=== PATIENT | male | born 1960 | race Caucasian/White ===

== ENCOUNTER 2018-08-12 06:27 | Emergency (ER) | payer BC, OTHER ==
[~2018-08-12] VITALS: Ht 175.3 cm; Wt 95.3 kg
[~2018-08-12 06:27] MED LIST: ASPIRIN325 MG PO; ATORVASTATIN CA10 MG PO; METOPROLOL TART25 MG PO; NITROGLYCERIN1 EAC1 TD
[2018-08-12] MEDS ORDERED: ONDANSETRON HCL INJ 2 MG/ML VIAL IV STA (07:09)
[2018-08-12] MEDS ORDERED: MORPHINE SULFATE 2 MG/ML SYR IV STA ×2 (07:09→07:29)
[2018-08-12 07:15] LABS: BASOPHILS # (AUTO) 0.1 (0.0-0.1); BASOPHILS % 0.4 % (0.0-1.0); EOSINOPHILS # (AUTO) 0.2 (0.0-0.4); EOSINOPHILS % 1.3 % (0.0-6.0); HEMATOCRIT 44.8 % (38.2-49.6); HEMOGLOBIN 15.7 g/dL (14.0-18.0); LYMPHOCYTES # (AUTO) 2.7 (1.0-3.2); LYMPHOCYTES % 18.2 % (18.0-39.1); MEAN CORPUSCULAR HEMOGLOBIN 32.3 pg (28-32); MEAN CORPUSCULAR VOLUME 92.2 fL (81-99); MONOCYTES # (AUTO) 0.8 (0.2-0.8); MONOCYTES % 5.3 % (4.4-11.3); NEUTROPHILS # (AUTO) 11.1 (2.1-6.9); NEUTROPHILS % 74.3 % (38.7-80.0); PLATELET COUNT 285 x10e3/uL (140-360); RED BLOOD COUNT 4.86 x10e6/uL (4.3-5.7); RED CELL DISTRIBUTION WIDTH 12.7 % (11.7-14.4)
[2018-08-12] MEDS ORDERED: SODIUM CHLORIDE 0.9% 1000ML 1,000 ML IV SCH (07:15)
[2018-08-12 07:18] LABS: CLARITY,URINE CLEAR (CLEAR); COLOR,URINE YELLOW (YELLOW); LEUKOCYTE ESTERASE ,URINE 1+ (NEGATIVE); NITRITE,URINE NEGATIVE (NEGATIVE); PROTEIN,URINE DIPSTICK NEGATIVE (NEGATIVE)
[2018-08-12 07:19] LABS: AMPHETAMINES SCREEN,URINE NEGATIVE (NEGATIVE); BENZODIAZEPINES SCREEN,URINE NEGATIVE (NEGATIVE); BILIRUBIN,URINE NEGATIVE (NEGATIVE); INR 0.91; KETONES,URINE NEGATIVE (NEGATIVE); PHENCYCLIDINE SCREEN,URINE NEGATIVE (NEGATIVE); PROTHROMBIN TIME 13.1 seconds (11.9-14.5); URINE UROBILINOGEN 0.2 mg/dL (0.2 - 1)
[2018-08-12 07:20] LABS: PARTIAL THROMBOPLASTIN TIME 27.3 seconds (23.8-35.5)
[2018-08-12] MEDS ORDERED: ONDANSETRON HCL INJ 2 MG/ML VIAL ONE (07:20)
[2018-08-12] MEDS ORDERED: MORPHINE SULFATE 2 MG/ML SYR ONE (07:20)
[2018-08-12 07:27] LABS: ALANINE AMINOTRANSFERASE 31 IU/L (0-55); ALBUMIN 3.9 g/dL (3.5-5.0); ALBUMIN/GLOBULIN RATIO 1.2 (0.8-2.0); ALKALINE PHOSPHATASE 111 IU/L (40-150); AMYLASE 53 U/L (25-125); BLOOD UREA NITROGEN 14 mg/dL (7-26); BUN/CREATININE RATIO 16 (6-25); CALCIUM 9.2 mg/dL (8.4-10.2); CARBON DIOXIDE 25 mmol/L (22-29); CHLORIDE 104 mmol/L (98-107); CREATINE KINASE 161 IU/L (30-200); CREATININE, SERUM 0.87 mg/dL (0.72-1.25); EST GLOMERULAR FILTRATION RATE > 60 ML/MIN (60-); GLUCOSE 146 mg/dL (74-118); LIPASE 42 U/L (8-78); SODIUM 142 mmol/L (136-145)
[2018-08-12 07:29] LABS: BACTERIA,URINE MODERATE /HPF; EPITHELIAL CELLS,URINE RARE /LPF
[2018-08-12] MEDS ORDERED: FAMOTIDINE 20 MG/2 ML VIAL IV STA (07:29)
[2018-08-12 07:30] LABS: MUCUS,URINE FEW (RARE)
[2018-08-12] MEDS ORDERED: POTASSIUM CHLO10 ME1 PO (08:03)
[2018-08-12] MEDS ORDERED: ZETIA10 MG PO (08:04)
[2018-08-12] MEDS ORDERED: LASIX20 MG PO ×2 (08:05→08:06)
--- NOTE | 2018-08-12 08:16 | Diagnostic Imaging Report ---
EXAMINATION: PA and lateral views of the chest. COMPARISON: None CLINICAL HISTORY: Abdominal pain DISCUSSION: Lines/tubes: Sternotomy wires Lungs: The lungs are well inflated and clear. No pneumonia or pulmonary edema. Pleura: No pleural effusion or pneumothorax. Heart and mediastinum: The cardiomediastinal silhouette is normal. Bones and soft tissues: No acute bony abnormalities. IMPRESSION: No acute cardiopulmonary abnormalities. Signed by: Dr. Anderson Hernandez M.D. on 08/12/2018 8:11 AM
[2018-08-12] MEDS ORDERED: SODIUM CHLORIDE 0.9% 50ML 50 ML ONE (08:40)
[2018-08-12] MEDS ORDERED: IOPAMIDOL 370 MG/ML 200 ML INFUS..BTL INJ ONE ×2 (08:42→08:47)
--- NOTE | 2018-08-12 08:55 | Diagnostic Imaging Report ---
EXAMINATION: CT of the abdomen and pelvis with contrast. TECHNIQUE: Helical CT images of the abdomen and pelvis were performed from the lung bases to the lesser trochanters after the intravenous administration of 100 cc of Isovue 300 and the oral administration of none. Coronal and sagittal reformatted images were obtained. Dose modulation, iterative reconstruction, and/or weight based adjustment of the mA/kV was utilized to reduce the radiation dose to as low as reasonably achievable. COMPARISON: None. CLINICAL HISTORY:Abdominal pain family right lower quadrant DISCUSSION: ABDOMEN/PELVIS: LOWER THORAX:Unremarkable. HEPATOBILIARY: No focal hepatic lesions. No intra-or extrahepatic biliary ductal dilation. Small calcified gallstones. SPLEEN: No splenomegaly. PANCREAS: No focal masses or ductal dilatation. ADRENALS: No adrenal nodules. KIDNEYS/URETERS: No hydronephrosis, stones, or solid mass lesions. PELVIC ORGANS/BLADDER: The bladder is normal. PERITONEUM/RETROPERITONEUM: No free air or fluid. LYMPH NODES: No intra-abdominal, retroperitoneal, pelvic or inguinal lymphadenopathy. VESSELS: ] Vascular calcifications. GI TRACT: No distention or wall thickening. Scattered diverticulosis. No inflammatory change. Appendix normal. Possible wall thickening of the cecum. BONES AND SOFT TISSUE: No bony destructive lesions. No soft tissue abnormalities. IMPRESSION: No acute CT finding. Possible wall thickening of the colonic cecum. Routine surveillance colonoscopy suggested as outpatient. Colonic diverticulosis without inflammatory change. Cholelithiasis without inflammatory change. Signed by: Dr. Anderson Hernandez M.D. on 08/12/2018 8:53 AM
[2018-08-12] MEDS ORDERED: HYDROCODONE/APAP 5MG-325MG TAB PO ONE (09:15)
[2018-08-12] MEDS ORDERED: LEVOFLOXACIN 500MG/D5W 100ML 100 ML IV ONE (09:15)
[2018-08-12 09:31] VITALS: BP 169/87
== END 2018-08-12 10:30 | disposition home or self-care (01) ==
LOC: ER 06:27
DX: R10.31 Right lower quadrant pain (principal); R11.2 Nausea with vomiting, unspecified; R19.7 Diarrhea, unspecified; N30.90 Cystitis, unspecified without hematuria; I10 Essential (primary) hypertension; E78.5 Hyperlipidemia, unspecified; I51.9 Heart disease, unspecified; Z95.1 Presence of aortocoronary bypass graft
CPT/HCPCS: 36415; 71046; 74177; 80053; 80307; 80320; 81001; 82150; 82550; 82553; 83690; 84484; 85025; 85610; 85730; 93005; 99284; J1956; J2270; J2405; J7030; Q9967

== ENCOUNTER → 2018-08-16 | Day surgery (SDC) | payer BC ==
[~2018-08-16] MED LIST changes: +FENTANYL CITRATE/PF 100MCG/2 ML INJ ONE; +GLUCAGON FOR INJ 1 MG VIAL ONE; +HYOSCYAMINE SULFATE 0.5 MG/ML INJ ONE; +LASIX20 MG PO; +MIDAZOLAM HCL 2 MG/2 ML VIAL ONE; +PANTOPRAZOLE 40 MG 10ML VIAL ONE; +POTASSIUM CHLO10 ME1 PO; +PROPOFOL IV EMULSION 10 MG/ML 50 ML VIAL ONE; +ZETIA10 MG PO
[2018-08-16 16:45] VITALS: BP 118/83
[2018-08-16 18:10] LABS: WBC,FECAL (FECAL LACTOFERRIN) POSITIVE (NEGATIVE)
[2018-08-17 12:03] LABS: C DIFFICILE TOXIN A&B AMP PROB NEGATIVE (NEGATIVE)
--- NOTE | 2018-09-04 04:36 | Operative Report ---
DATE OF PROCEDURE: August 16, 2018 REFERRING PHYSICIAN: Dr. Mark Lee PROCEDURES PERFORMED 1. Esophagogastroduodenoscopy with biopsies and esophageal dilatation. 2. Colonoscopy with polypectomy and biopsies. INDICATIONS FOR EGD: Dysphagia, history of heartburn and indigestion, history of melena. INDICATIONS FOR COLONOSCOPY: Lower abdominal pain and diarrhea. MEDICATION: Patient was done under MAC. Please see anesthesiologist's note. PROCEDURE: With the patient in the left lateral decubitus position, the flexible fiberoptic Olympus gastroscope was introduced into the esophagus under direct visualization without any difficulty. There were some erosions noted in the distal esophagus. A large ulcer was noted in the distal esophagus without active bleeding or stigmata of recent hemorrhage. An esophageal stricture was noted at the GE junction and that was dilated to a size 52-[place] Tineo. A minute nodule was noted at the GE junction that was biopsied. The scope was then advanced with ease into the stomach traversing a moderate size hiatal hernia. Several gastric ulcers were noted without active bleeding or stigmata of recent hemorrhage. Biopsies were obtained. The mucosa overlying the body of the stomach revealed some patchy areas of erythema. Pylorus appeared to be of normal contour and shape. It was intubated with ease. The scope was advanced all the way to the 2nd portion of the duodenum. Biopsies were obtained from the proximal 2nd portion to rule out sprue. An approximately 5-mm nodule was noted in the duodenal bulb and that was biopsied. The scope was then withdrawn back into the stomach and retroflexed. Mucosa overlying the fundus appeared to be within normal limits. The cardia also grossly appeared to be within normal limits. The scope was then straightened out. The stomach was decompressed. The scope was subsequently withdrawn. Patient tolerated the procedure well. IMPRESSION 1. Erosive esophagitis. 2. Large ulcer in distal esophagus without active bleeding or stigmata of recent hemorrhage. 3. Esophageal stricture at gastroesophageal junction dilated to a size 52-[place] Tineo. 4. Moderate size hiatal hernia. 5. Several gastric ulcers, antrum, without active bleeding or stigmata of recent hemorrhage. Biopsies obtained. 6. Nodule, duodenal bulb, biopsied. 7. Rule out sprue. PLAN: Follow up histology. Initiate Protonix 40 mg 1 p.o. q.a.m. a.c. Patient was then turned around. After adequate lubrication of the anal canal, a flexible fiberoptic Olympus colonoscope was introduced into the rectum and advanced all the way to the cecum. Prep overall was suboptimal with retained stools in the colon. The mucosa overlying the cecum revealed multiple nodules that was friable. It was ulcerated and biopsies were obtained. The ileocecal valve also was somewhat nodular and friable and biopsies were obtained. Whatever was visualized of the mucosa overlying the ascending and the transverse appeared to be within normal limits. Some diverticular disease was noted in the distal descending and the sigmoid colon. An approximately 1.2 cm rectal polyp sessile was removed per snare electrocautery. The scope was then retroflexed into the distal rectum and small internal hemorrhoids were noted, none of which was actively bleeding. The scope was then straightened out. It was subsequently withdrawn. Patient tolerated the procedure well. IMPRESSION 1. Suboptimal prep. 2. Cecum, nodular, friable and ulcerated, biopsied. 3. Ileocecal somewhat nodular and friable, biopsied. 4. Diverticulosis. 5. Sigmoiditis, mild, not mentioned in the body of the report, biopsied. 6. Rectal polyp approximately 1.2 cm in size, sessile, removed per snare electrocautery. 7. Internal hemorrhoids, none actively bleeding. PLAN: Follow up histology. Follow up stool studies. Check IBD panel, CRP and sed rate. Patient will need a followup colonoscopy after a better prep. Job#: [id number] RENE
--- OUTSIDE RECORDS SUMMARY | 2018-09-05 07:23 | XMS REPORT ---
Author Author [facility] Address Unknown Phone Unavailable Care Team Providers Care Truck Driver Heavy Name Role Phone Evelyn WATKINS Unavailable Unavailable Problems This patient has no known problems. Allergies, Adverse Reactions, Alerts This patient has no known allergies or adverse reactions. Medications This patient has no known medications. Results Test Description Test Time Test Comments Text Results Atomic Results Result Comments CT ABDOMEN/PELVIS W 2018-08-12 08:40:00 [place] [address] Patient Name: MAGGY FOURNIER MR #: [id number] : 1960 Age/Sex: 58/M Req #: [id number] Adm Physician: Ordered by: EDIE WATKINS MD Report #: [id number] Location: ER Room/Bed: Procedure: [id number] CT/CT ABDOMEN/PELVIS W Exam Date: Exam Time: REPORT STATUS: Signed EXAMINATION: CT of the abdomen and pelvis with contrast. TECHNIQUE: Helical CT images of the abdomen and pelvis were performed from the lung bases to the lesser trochanters after the intravenous administration of 100 cc of Isovue 300 and the oral administration of none. Coronal and sagittal reformatted images were obtained. Dose modulation, iterative reconstruction, and/or weight based adjustment of the mA/kV was utilized to reduce the radiation dose to as low as reasonably achievable. COMPARISON: None. CLINICAL HISTORY:Abdominal pain family right lower quadrant DISCUSSION: ABDOMEN/PELVIS: LOWER THORAX:Unremarkable. HEPATOBILIARY: No focal hepatic lesions. No intra-or extrahepatic biliary ductal dilation. Small calcified gallstones. SPLEEN: No splenomegaly. PANCREAS: No focal masses or ductal dilatation. ADRENALS: No adrenal nodules. KIDNEYS/URETERS: No hydronephrosis, stones, or solid mass lesions. PELVIC ORGANS/BLADDER: The bladder is normal. PERITONEUM/RETROPERITONEUM: No free air or fluid. LYMPH NODES: No intra-abdominal, retroperitoneal, pelvic or inguinal lymphadenopathy. VESSELS: ] Vascular calcifications. GI TRACT: No distention or wall thickening. Scattered diverticulosis. No inflammatory change. Appendix normal. Possible wall thickening of the cecum. BONES AND SOFT TISSUE: No bony destructive lesions. No soft tissue abnormalities. IMPRESSION: No acute CT finding. Possible wall thickening of the colonic cecum. Routine surveillance colonoscopy suggested as outpatient. Colonic diverticulosis without inflammatory change. Cholelithiasis without inflammatory change. Signed by: Dr. Kyle Coles M.D. on 08/12/2018 8:53 AM Dictated By: KYLE COLES MD 2 Transcribed By: KESHIA on 08/12/18852 COPY TO: EDIE WATKINS MD CHEST 2 VIEWS 2018-08-12 08:10:00 [place] [address] Patient Name: MAGGY FOURNIER MR #: [id number] : 1960 Age/Sex: 58/M Req #: [id number] Adm Physician: Ordered by: SALVADOR BERNARDO MD Report #: [id number] Location: ER Room/Bed: Procedure: [id number] DX/CHEST 2 VIEWS Exam Date: 08/12/18 Exam Time: 747 REPORT STATUS: Signed EXAMINATION: PA and lateral views of the chest. COMPARISON: None CLINICAL HISTORY: Abdominal pain DISCUSSION: Lines/tubes: Sternotomy wires Lungs: The lungs are well inflated and clear. No pneumonia or pulmonary edema. Pleura: No pleural effusion or pneumothorax. Heart and mediastinum: The cardiomediastinal silhouette is normal. Bones and soft tissues: No acute bony abnormalities. IMPRESSION: No acute cardiopulmonary abnormalities. Signed by: Dr. Kyle Coles M.D. on 08/12/2018 8:11 AM Dictated By: KYLE COLES MD 0 Transcribed By: KESHIA on 08/12/18810 COPY TO: SALVADOR BERNARDO MD
== END | disposition home or self-care (01) ==
LOC: ENDO 13:02
PROVIDERS: ATTEND Internal Medicine Gastroenterology
DX: K29.50 Unspecified chronic gastritis without bleeding (principal); D12.8 Benign neoplasm of rectum; K22.2 Esophageal obstruction; K29.80 Duodenitis without bleeding; K25.9 Gastric ulcer, unspecified as acute or chronic, without hemorrhage or perforation; K52.9 Noninfective gastroenteritis and colitis, unspecified; K63.3 Ulcer of intestine; K22.10 Ulcer of esophagus without bleeding; K59.00 Constipation, unspecified; K21.9 Gastro-esophageal reflux disease without esophagitis; K44.9 Diaphragmatic hernia without obstruction or gangrene; K57.30 Diverticulosis of large intestine without perforation or abscess without bleeding; K64.8 Other hemorrhoids; R93.8 Abnormal findings on diagnostic imaging of other specified body structures; D72.829 Elevated white blood cell count, unspecified; I10 Essential (primary) hypertension; K80.80 Other cholelithiasis without obstruction; I25.10 Atherosclerotic heart disease of native coronary artery without angina pectoris; I25.2 Old myocardial infarction; F17.210 Nicotine dependence, cigarettes, uncomplicated; Z01.810 Encounter for preprocedural cardiovascular examination; Z79.82 Long term (current) use of aspirin; Z95.1 Presence of aortocoronary bypass graft; Z95.5 Presence of coronary angioplasty implant and graft
CPT/HCPCS: 43239; 43450; 45380; 45385; 83630; 83993; 87045; 87177; 87328; 87493; 93005; J1610; J1980; J2250

== ENCOUNTER → 2020-07-15 | Outpatient (CLI) | payer OTHER ==
[~2020-07-15] MED LIST changes: -FENTANYL CITRATE/PF 100MCG/2 ML INJ ONE; -GLUCAGON FOR INJ 1 MG VIAL ONE; -HYOSCYAMINE SULFATE 0.5 MG/ML INJ ONE; -MIDAZOLAM HCL 2 MG/2 ML VIAL ONE; -PANTOPRAZOLE 40 MG 10ML VIAL ONE; -PROPOFOL IV EMULSION 10 MG/ML 50 ML VIAL ONE
--- NOTE | 2020-07-15 13:24 | Diagnostic Imaging Report ---
MRI of the right shoulder without contrast. History: Shoulder pain. Decreased range of motion. History of old trauma rotator cuff tear. Comparison: None Technique: Coronal PD FS, sagital PD FS, and axial PD and PD FS. Findings: Rotator cuff: Rotator cuff tendinosis with midsubstance degeneration and articular sided fraying involving the anterior fibers of the supraspinatus and infraspinatus tendons at the humeral insertion site. Reactive change in the superior humerus with mild bone marrow edema. Additionally, there is subscapularis tendinosis. The teres minor tendon is intact. There is diffuse rotator cuff and shoulder muscle atrophy as seen on sagittal image 23 and 24. Osseous acromion complex: Type II acromion with mild lateral downsloping. Moderate degenerative arthrosis at the acromioclavicular joint with undersurface spurring and narrowing of the supraspinatus tendon outlet. Glenohumeral joint: Moderate degenerative arthrosis in the glenohumeral joint with degenerative type tearing of the labrum. Regions of full-thickness articular cartilage loss most pronounced at the inferior glenoid with underlying subchondral cystic change and bone marrow edema. Peripheral osteophytosis with large osteophyte at the inferior medial humeral head. The humeral head is well-seated in the glenoid fossa. Biceps tendon: Intra-articular biceps tendinosis with fraying of the biceps anchor. Other findings: Negative for acute fracture Impression: Rotator cuff tendinosis with midsubstance degeneration and articular sided fraying involving the anterior fibers of the supraspinatus and infraspinatus tendons at the humeral insertion site. Diffuse rotator cuff and shoulder muscle atrophy appears chronic. Intra-articular biceps tendinosis with fraying of the biceps anchor. Moderate degenerative arthrosis at the acromioclavicular joint with undersurface spurring and narrowing of the supraspinatus tendon outlet. Moderate degenerative arthrosis in the glenohumeral joint with degenerative type tearing of the labrum. Signed by: Dr. Gil Ross M.D. on 07/15/2020 1:20 PM
== END ==
LOC: MRI 07-14 15:01
PROVIDERS: ATTEND Specialist
DX: S43.421A Sprain of right rotator cuff capsule, initial encounter (principal)

== ENCOUNTER 2020-08-19 09:54 | Outpatient (RCR) | payer OTHER | END 2020-08-20 | LOC: PT 09:54 | PROVIDERS: ATTEND Specialist | DX: M75.81 Other shoulder lesions, right shoulder (principal); M25.511 Pain in right shoulder; M25.611 Stiffness of right shoulder, not elsewhere classified; M62.81 Muscle weakness (generalized) ==

== ENCOUNTER 2020-09-05 10:58 | Outpatient (RCR) | payer OTHER | END 2020-09-20 | LOC: PT 10:58 | PROVIDERS: ATTEND Specialist | DX: M77.8 Other enthesopathies, not elsewhere classified (principal) ==

== ENCOUNTER 2021-05-07 20:16 | Emergency (ER) | payer BC, OTHER ==
[~2021-05-07] VITALS: Ht 175.3 cm; Wt 88.5 kg
[2021-05-07] MEDS ORDERED: ONDANSETRON HCL INJ 2MG/ML 2ML 2 MG/ML VIAL IV STA (20:32)
[2021-05-07] MEDS ORDERED: SODIUM CHLORIDE 0.9% 1000ML 1,000 ML IV STA (20:32)
[2021-05-07] MEDS ORDERED: MORPHINE SULFATE INJ 4 MG/ML INJ 1ML IV STA (20:32)
[2021-05-07] MEDS ORDERED: ONDANSETRON HCL INJ 2MG/ML 2ML 2 MG/ML VIAL ONE (20:59)
[2021-05-07] MEDS ORDERED: MORPHINE SULFATE INJ 4 MG/ML INJ 1ML ONE (20:59)
[2021-05-07] MEDS ORDERED: SODIUM CHLORIDE 0.9% 1000ML 1,000 ML ONE (20:59)
[2021-05-07] MEDS ORDERED: SODIUM CHLORIDE 0.9% 50ML 50 ML ONE (21:11)
[2021-05-07] MEDS ORDERED: IOPAMIDOL 370 MG/ML 200 ML INFUS..BTL INJ ONE (21:15)
[2021-05-07 22:15] VITALS: BP 176/86
== END 2021-05-07 22:15 | disposition home or self-care (01) ==
LOC: FSED 20:30
DX: R10.11 Right upper quadrant pain (principal); I10 Essential (primary) hypertension; E11.9 Type 2 diabetes mellitus without complications
CPT/HCPCS: 74177; 80048; 80076; 81003; 84484; 85025; 93005; 96374; 96376; 99284; J2270; J2405; J7030; Q9967